=== PATIENT | male | born 1975 | race Caucasian/White ===

== ENCOUNTER 2021-10-15 03:14 | Inpatient (IN) | payer OTHER ==
[~2021-10-15] VITALS: Ht 177.8 cm; Wt 92.5 kg
--- NOTE | 2021-10-15 03:38 | NUR ---
ERMD into eval patient.
[2021-10-15 04:03] LABS: CARBON DIOXIDE 27 mmol/L (21-32); CHLORIDE 100 mmol/L (98-107); CREATININE 1.1 mg/dL (0.6-1.3); GLUCOSE 104 mg/dL (74-106); HEMATOCRIT 42.9 % (36.7-47.1); MEAN CORPUSCULAR HEMOGLOBIN 29.6 uug (23.8-33.4); MEAN CORPUSCULAR VOLUME 85.7 fL (73.0-96.2); PLATELET COUNT (AUTO) 286 K/uL (152-348); POTASSIUM 3.4 mmol/L (3.5-5.1); UREA NITROGEN, BLOOD 21 mg/dL (7-18)
[2021-10-15] MEDS ORDERED: NITROGLYCERIN 0.4 MG/TAB BOTTLE SL ONE (04:15)
[2021-10-15 04:19] LABS: ALANINE AMINOTRANSFERASE 44 U/L (16-63); ALKALINE PHOSPHATASE 73 U/L (50-136); ASPARTATE AMINOTRANSFERASE 19 U/L (15-37); BILIRUBIN,TOTAL 0.3 mg/dL (0.2-1.0); TOTAL PROTEIN, SERUM 7.8 g/dL (6.4-8.2)
[2021-10-15 04:22] LABS: BILIRUBIN,DIRECT < 0.1 mg/dL (0.0-0.2)
--- NOTE | 2021-10-15 04:29 | NUR ---
Called Epic panel a security monitor, Waiting for Zachary Arreola NP to call back.
--- NOTE | 2021-10-15 05:00 | NUR ---
Accepted by Zachary Arreola [employer] communications coordinator for Epic to [facility].
[2021-10-15] MEDS ORDERED: Z GUARD REMEDY PASTE 57 GM TUBE TOP PRN (05:15)
[2021-10-15] MEDS ORDERED: MAGNESIUM HYDROXIDE 30 ML LIQUID UDC PO PRN (05:15)
[2021-10-15] MEDS ORDERED: ONDANSETRON 4 MG/2 ML VIAL IV PRN (05:15)
[2021-10-15] MEDS ORDERED: ACETAMINOPHEN 325 MG TABLET PO PRN (05:15)
[2021-10-15] MEDS ORDERED: NITROGLYCERIN 0.4 MG/TAB BOTTLE SL PRN (05:15)
--- NOTE | 2021-10-15 05:50 | NUR ---
Transfered to 3rd floor tele via wheelchair with no distress noted.
[2021-10-15 06:15] VITALS: BP 131/86
[2021-10-15] MEDS: PANTOPRAZOLE SODIUM 40 MG TABLET.DR PO SCH ×2 (06:52→06:58)
--- NOTE | 2021-10-15 06:58 | NUR ---
Pt arrived on unit at 0600H. Placed on Tele, SR. IV intact. Denies chest pain or SOB at this time but states that if he lays down flat, he has some chest discomfort. Lung sounds clear. Pt able to ambulate and make needs known. Skin intact. PERRLA. Call light within reach. Will endorse to day shift.
[2021-10-15] MEDS ORDERED: IBUPROFEN 800 MG TABLET PO ONE (08:30)
[2021-10-15] MEDS ORDERED: LISINOPRIL 5 MG TABLET PO SCH (09:00)
[2021-10-15] MEDS ORDERED: ASPIRIN EC 81 MG TABLET.DR PO SCH ×2 (09:00)
[2021-10-15] MEDS ORDERED: METOPROLOL TARTRATE 50 MG TABLET PO SCH (09:00)
[2021-10-15] MEDS ORDERED: POTASSIUM CHLORIDE 20 MEQ TAB.PRT.SR PO ONE (09:30)
--- NOTE | 2021-10-15 10:53 | NUR ---
Received pt from maintenance technician 2nd shift. Pt is a new admission from ER came onto floor at 0600. Pt was having left sided chest pain for two days at home and one hour prior to calling 911 he felt a stronger sharp pain in his chest. Pt was given nitro 2x in the ambulance, and 1 x nitro in the ER. No prior medical history, physical assessment WNL. Pt was normal sinus rhythm on telemetry HR 76 BP 126/86, saturating 98% on room air during 0800 vitals. Currently D/Cd from telemetry per MD order. Pt refused 0900 metoprolol. No complaint of chest pain this morning. No signs of acute distress. Comfort measures provided, call light within reach. Pending Echocardiogram today and possible discharge after results. Will continue to monitor pt.
[2021-10-15 12:04] VITALS: BP 103/57
[2021-10-15] MEDS ORDERED: ATOR40TA PO (15:27)
[2021-10-15] MEDS ORDERED: IBUP-1953 PO (15:27)
[2021-10-15] MEDS ORDERED: FAMO-132 PO (15:30)
[2021-10-15 16:10] VITALS: BP 110/68
--- NOTE | 2021-10-15 17:36 | NUR ---
Pt is being discharged. Pt is a/o x 4, ambulatory, no complaint of pain at this time. Pt is to be picked up by family member. IV and ID band removed. All personal belongings at hand and signed for. All discharge material and education given to pt, physical prescription given to pt. Pt stable for discharge. Left floor ambulating to private car.
== END 2021-10-15 17:30 | disposition home or self-care (01) | DRG 351 ==
LOC: ER 03:20 → TELE3 05:43
PROVIDERS: ADMIT Hospitalist; ATTEND Internal Medicine
DX: S29.011A Strain of muscle and tendon of front wall of thorax, initial encounter (principal); E66.9 Obesity, unspecified; X50.0XXA Overexertion from strenuous movement or load, initial encounter; Y93.B3 Activity, free weights; M94.0 Chondrocostal junction syndrome [Tietze]; Y92.89 Other specified places as the place of occurrence of the external cause; E78.5 Hyperlipidemia, unspecified; Z68.29 Body mass index [BMI] 29.0-29.9, adult; E87.6 Hypokalemia; R03.0 Elevated blood-pressure reading, without diagnosis of hypertension; M41.9 Scoliosis, unspecified; Z82.49 Family history of ischemic heart disease and other diseases of the circulatory system; Z20.822 Contact with and (suspected) exposure to COVID-19; R94.31 Abnormal electrocardiogram [ECG] [EKG]
CPT/HCPCS: 36415; 70030-TC; 71045; 85025; 93005; 93307; A4663; G0378

== ENCOUNTER 2025-07-23 06:55 | Emergency (ER) | payer OTHER ==
[~2025-07-23] VITALS: Ht 177.8 cm; Wt 99.8 kg
[~2025-07-23 06:55] MED LIST: ATOR40TA PO; FAMO-132 PO; IBUP-1953 PO
[2025-07-23 07:06] VITALS: BP 140/80
[2025-07-23] MEDS ORDERED: HYDR-3980 PO (07:41)
[2025-07-23] MEDS ORDERED: ONDA4TAB11 PO (07:41)
[2025-07-23 08:01] VITALS: BP 140/80; TEMP 97.5; O2SAT 98
== END 2025-07-23 08:03 | disposition home or self-care (01) ==
LOC: ER 06:55
DX: S20.219A Contusion of unspecified front wall of thorax, initial encounter (principal); S50.812A Abrasion of left forearm, initial encounter; M25.551 Pain in right hip; R10.2 Pelvic and perineal pain; E78.5 Hyperlipidemia, unspecified; Z88.7 Allergy status to serum and vaccine; Z28.21 Immunization not carried out because of patient refusal; V43.52XA Car driver injured in collision with other type car in traffic accident, initial encounter; Y93.89 Activity, other specified; Y92.488 Other paved roadways as the place of occurrence of the external cause; Y99.8 Other external cause status
CPT/HCPCS: 71045; 72170; A4606; A4663